=== PATIENT | female | born 2000 | race Caucasian/White ===

== ENCOUNTER 2020-08-04 18:00 | Emergency (ER) | payer OTHER ==
[~2020-08-04] VITALS: Ht 160 cm; Wt 61.4 kg
[2020-08-04 20:42] LABS: BASO % 0.2 % (0.0-1.0); EOS % 0.2 % (0.0-3.0); HEMATOCRIT 40.9 % (36.0-47.0); HEMOGLOBIN 13.4 g/dl (12.0-15.5); LYMPH # 1.9 10^3/uL (1.5-5.0); LYMPH % 15.3 % (24.0-44.0); MEAN CORPUSCULAR HEMOGLOBIN 29.3 pg (27.0-33.0); MEAN CORPUSCULAR HGB CONC 32.8 g/dl (32.0-36.5); MEAN CORPUSCULAR VOLUME 89.5 fl (80.0-96.0); MONO # 0.9 10^3/uL (0.0-0.8); MONO % 7.4 % (0.0-5.0); NEUTROPHILS # 9.6 10^3/uL (1.5-8.5); NEUTROPHILS % 76.6 % (36.0-66.0); PLATELET COUNT, AUTOMATED 267 10^3/uL (150-450); RED BLOOD COUNT 4.57 10^6/uL (4.00-5.40); WHITE BLOOD COUNT 12.5 10^3/uL (4.0-10.0)
[2020-08-04 21:08] LABS: MONO REFLEX EBV COMP NEGATIVE (NEGATIVE)
[2020-08-04] MEDS ORDERED: ISOVUE-370 76% 100ML VIAL As Ordered ONE (21:11)
--- NOTE | 2020-08-04 21:46 | REPVR ---
PROCEDURE INFORMATION: Exam: CT Neck With Contrast Exam date and time: 08/04/2020 9:20 PM Age: 20 years old Clinical indication: Painful swallowing; Additional info: R sided tonsillar swelling R/O abscess TECHNIQUE: Imaging protocol: Computed tomography images of the neck with intravenous contrast. Radiation optimization: All CT scans at this facility use at least one of these dose optimization techniques: automated exposure control; mA and/or kV adjustment per patient size (includes targeted exams where dose is matched to clinical indication); or iterative reconstruction. Contrast material: ISOVUE 370; Contrast volume: 75 ml; Contrast route: INTRAVENOUS (IV); COMPARISON: No relevant prior studies available. FINDINGS: Nasopharynx: Unremarkable. Oropharynx: Both tonsils are enlarged. There is a 5 mm oval low-density area in the inferolateral right tonsil which may be an early peritonsillar abscess or area of phlegmon. No peritonsillar abscess on the left. Hypopharynx: Unremarkable. Larynx: Unremarkable. Normal epiglottis. Retropharyngeal space: Unremarkable. Submandibular/Parotid glands: Normal. Glands are normal in size. Thyroid: Normal. No enlarged or calcified nodules. Lymph nodes: Mildly enlarged upper cervical lymph nodes, measuring up to 15 mm. Trachea: Visualized trachea is unremarkable. Lungs: Unremarkable as visualized. Bones/joints: Unremarkable. No acute fracture. Soft tissues: Unremarkable. No significant soft tissue swelling. IMPRESSION: 1. Mildly enlarged tonsils suggesting early tonsillitis. Possible small early right peritonsillar abscess versus area of phlegmon. 2. Mild reactive cervical adenopathy. Electronically signed by: Elías Dacosta On 08/04/2020 21:46:38 PM
[2020-08-04] MEDS ORDERED: AUGM875T28 PO (21:58)
[2020-08-04] MEDS ORDERED: AUGMENTIN 875 MG TAB PO ONE (22:00)
[2020-08-04 22:11] VITALS: BP 140/95
[2020-08-06 18:07] LABS: EBV AB TO NUCLEAR ANTIGEN >600.0 U/mL (0.0-17.9); EBV VIRAL CAPSID AG IgM <36.0 U/mL (0.0-35.9)
--- NOTE | 2020-08-07 11:59 | ED PDOC ---
Post-Departure Follow-Up certified letter sent to pt re formal read of ct neck. Needs fu. see report. ref er to ENT. Alin Moeller MD Aug 07, 2020 11:59
== END 2020-08-04 22:18 | disposition home or self-care (01) ==
LOC: M ED 18:00
DX: J03.90 Acute tonsillitis, unspecified (principal)
CPT/HCPCS: 36415; 70491; 80047; 85025; 86308; 86664; 86665; 87880; 99284; Q9967

== ENCOUNTER 2021-03-15 21:49 | Emergency (ER) | payer OTHER ==
[~2021-03-15] VITALS: Ht 162.6 cm; Wt 62.7 kg
[~2021-03-15 21:49] MED LIST: AUGM875T28 PO
[2021-03-16] MEDS ORDERED: IBUPROFEN 600MG TAB PO ONE (00:25)
[2021-03-16] MEDS ORDERED: CYCL-707 PO (00:38)
[2021-03-16 00:55] VITALS: BP 127/83
== END 2021-03-16 01:03 | disposition home or self-care (01) ==
LOC: M ED 21:49
DX: M54.5 Low back pain (principal)

== ENCOUNTER 2021-10-17 12:18 | Outpatient (CLI) | payer OTHER ==
[~2021-10-17] VITALS: Ht 162.6 cm; Wt 69.5 kg
[~2021-10-17 12:18] MED LIST changes: +CYCL-707 PO
[2021-10-17 12:42] VITALS: BP 95/59
[2021-10-17 13:16] VITALS: BP 103/67
[2021-10-17] MEDS ORDERED: PRENTAB9 PO (13:19)
[2021-10-17] MEDS ORDERED: HOME MED LIST COMPLETE! XX SCH (13:20)
--- NOTE | 2021-10-17 13:45 | IPNPDOC ---
Text Note Date of Service The patient was seen on 10/17/21. NOTE 21 yo at 28+4 weeks gestation presented to L&D with the complaint of not feeling any movement since Sunday. She reports she usually feels at least some movement but has not since Sunday. She also reports a runny nose, intermittent headache, and a sore throat. She recently returned from [place] after traveling for the holidays. Otherwise she denies any pelvic pain, fev ers/chills, SOB, chest pain, vaginal bleeding, discharge, or leakage of fluid. Vitals - VSS, afebrile, normotensive, non tachycardic General - AAOX3, sitting up in bed, NAD Abdomen - Gravid uterus appropriate size for gestational age. No fundal tenderess FHR tracing - Appropriate for gestational age with moderate variability and 10X10 accels. Single questionable variable decel, but not deep. Overall very reassuring after >1 hour of monitoring. bedside TAUS ( anatomy not assessed): Viable SIUP in cephalic presentation. +gross movement. FELICITY 17.5 cm. Labs: Respiratory panel - Positive for SARS-CoV-2 Patient felt movement while in triage and was reassured. Reassuring status on NST and bedside TAUS. Patient not acutely ill with normal vital signs and is afebrile. We discussed her COVID-19 diagnosis. I offered monoclonal antibody infusion due to her making her at risk for progression to severe COVID-19 disease but she declined, citing her mild symptoms and lack of [facility] safety data in . 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 I gave her a dorian stating her diagnosis. Follow up in the office in 10 days when her quarantine is over. Return to care sooner for worsening symptoms or any urgent concerns. All questions answered. 60 minutes Tali Henderson, I+O Tali MICHEL, I+O Vital Signs Date Time Temp Pulse Resp B/P (MAP) Pulse Ox O2 Delivery O2 Flow Rate FiO2 10/17/21 13:16 84 16 103/67 (79) 10/17/21 12:42 98.3 98 Room Air BLANCA NAVA DO Oct 17, 2021 13:45
== END 2021-10-17 15:35 | disposition home or self-care (01) ==
LOC: M LDO 12:18
PROVIDERS: ATTEND Obstetrics & Gynecology
DX: O36.8130 Decreased fetal movements, third trimester, not applicable or unspecified (principal); O99.513 Diseases of the respiratory system complicating pregnancy, third trimester; U07.1 COVID-19; Z3A.28 28 weeks gestation of pregnancy
CPT/HCPCS: 59025; 87798; G0378; G0463

== ENCOUNTER 2021-12-01 14:58 | Outpatient (CLI) | payer OTHER ==
[~2021-12-01] VITALS: Ht 160 cm; Wt 69.6 kg
[~2021-12-01 14:58] MED LIST changes: +PRENTAB9 PO
[2021-12-01] MEDS ORDERED: HOME MED LIST COMPLETE! XX SCH (15:25)
[2021-12-01 15:26] VITALS: BP 102/61
[2021-12-01] MEDS ORDERED: LACTATED RINGER'S 1000 ML IV STA (16:03)
[2021-12-01 16:42] LABS: HEMATOCRIT 32.8 % (36.0-47.0); HEMOGLOBIN 11.1 g/dl (12.0-15.5); MEAN CORPUSCULAR HEMOGLOBIN 31.9 pg (27.0-33.0); MEAN CORPUSCULAR HGB CONC 33.8 g/dl (32.0-36.5); MEAN CORPUSCULAR VOLUME 94.3 fl (80.0-96.0); PLATELET COUNT, AUTOMATED 216 10^3/uL (150-450); RED BLOOD COUNT 3.48 10^6/uL (4.00-5.40); WHITE BLOOD COUNT 9.2 10^3/uL (4.0-10.0)
[2021-12-01 16:59] VITALS: BP 99/61
[2021-12-01 17:41] VITALS: BP 101/62
== END 2021-12-01 19:05 | disposition home or self-care (01) ==
LOC: M LDO 14:58
PROVIDERS: ATTEND Advanced Practice Midwife
DX: O9A.213 Injury, poisoning and certain other consequences of external causes complicating pregnancy, third trimester (principal); Z3A.35 35 weeks gestation of pregnancy; S20.229A Contusion of unspecified back wall of thorax, initial encounter; X58.XXXA Exposure to other specified factors, initial encounter; Y92.9 Unspecified place or not applicable
CPT/HCPCS: 59025; 76815; 85027; 85460; G0378; G0463

== ENCOUNTER 2022-01-02 18:39 | Inpatient (IN) | payer OTHER ==
[~2022-01-02] VITALS: Ht 162.6 cm; Wt 70.4 kg
[2022-01-02] MEDS ORDERED: HOME MED LIST COMPLETE! XX SCH (18:45)
[2022-01-02 18:58] VITALS: BP 114/70
[2022-01-02 19:52] LABS: HEMATOCRIT 31.7 % (36.0-47.0); HEMOGLOBIN 10.9 g/dl (12.0-15.5); MEAN CORPUSCULAR HEMOGLOBIN 31.7 pg (27.0-33.0); MEAN CORPUSCULAR HGB CONC 34.4 g/dl (32.0-36.5); MEAN CORPUSCULAR VOLUME 92.2 fl (80.0-96.0); PLATELET COUNT, AUTOMATED 192 10^3/uL (150-450); RED BLOOD COUNT 3.44 10^6/uL (4.00-5.40); WHITE BLOOD COUNT 8.3 10^3/uL (4.0-10.0)
[2022-01-02 20:20] VITALS: BP 110/57
[2022-01-02] MEDS ORDERED: OXYTOCIN DRIP 30 UNITS in IV 1 EA IV PRN ×4 (20:30)
[2022-01-02] MEDS ORDERED: miSOPROStol 25MCG 1/4 TABLET PO ONE (20:30)
[2022-01-02] MEDS: LR 1,000 ML IV SCH (20:50)
[2022-01-02 21:17] VITALS: BP 109/56
[2022-01-02 22:28] VITALS: BP 106/67
[2022-01-02 23:22] VITALS: BP 112/55
[2022-01-03] VITALS (24 sets, daily range): BP systolic 101–127; BP diastolic 60–88
[2022-01-03] MEDS: LR 1,000 ML IV SCH ×3 (00:22→07:17)
[2022-01-03] MEDS ORDERED: OXYTOCIN DRIP 30 UNITS in IV 1 EA IV SCH ×2 (01:35→10:30)
[2022-01-03] MEDS ORDERED: OXYTOCIN INJ 10 UNITS/ML VIAL (J2590) As Ordered ONE (09:20)
[2022-01-03 10:18] LABS: CORD GAS ABE A -4.1; CORD GAS HCO3 A 20.3 MEQ/L; CORD GAS O2 SAT A 64.1 %; CORD GAS PCO2 A 35.7 mmHg; CORD GAS PH A 7.373 UNITS; CORD GAS PO2 A 28.1 mmHg; CORD GAS SBC A 20.3 MEQ/L; CORD GAS TCO2 A 21.4 MEQ/L
[2022-01-03 10:21] LABS: CORD GAS ABE V -2.9; CORD GAS HCO3 V 21.8 MEQ/L; CORD GAS O2 SAT V 64.8 %; CORD GAS PH V 7.377 UNITS; CORD GAS PO2 V 27.1 mmHg; CORD GAS SBC V 21.3 MEQ/L
[2022-01-03] MEDS ORDERED: ANUSOL HC CREAM 30GM TOP PRN (10:30)
[2022-01-03] MEDS ORDERED: DIBUCAINE 1% OINTMENT 30GM TOP PRN (10:30)
[2022-01-03] MEDS ORDERED: OXYTOCIN INJ 10 UNITS/ML VIAL (J2590) IV ONE (10:30)
[2022-01-03] MEDS ORDERED: OXYTOCIN DRIP 30 UNITS in IV 1 EA IV ONE (10:30)
[2022-01-03] MEDS ORDERED: IBUPROFEN 600MG TAB PO PRN (10:30)
[2022-01-03] MEDS ORDERED: METHYLERGONOVINE MALEATE 0.2 MG/ML VIAL (J2210) IM PRN (10:30)
[2022-01-03] MEDS ORDERED: RHOGAM 300 MCG (1500 IU) INJ (J2790) IM SCH (10:30)
[2022-01-03] MEDS ORDERED: ACETAMINOPHEN 500 MG TAB PO PRN (10:30)
[2022-01-03] MEDS ORDERED: METHYLERGONOVINE MALEATE 0.2 MG TAB PO PRN (10:30)
[2022-01-03] MEDS ORDERED: LR 1,000 ML IV SCH (10:30)
[2022-01-03] MEDS ORDERED: MEASLES,MUMPS,RUBELLA VACCINE INJ (MMR-II) (90707) SC SCH (10:30)
[2022-01-03] MEDS ORDERED: MOM 30ML SUSPENSION UDC PO PRN (10:30)
[2022-01-03] MEDS ORDERED: ACETAMINOPHEN TAB 650MG DOSE (2X325MG) PO PRN (10:30)
[2022-01-03] MEDS ORDERED: DOCUSATE SODIUM 100MG CAPSULE PO PRN (10:30)
[2022-01-03] MEDS: PRENATAL VITAMINS CHEWABLE TABLET PO SCH (15:18)
[2022-01-04 06:00] VITALS: BP 121/67
[2022-01-04] MEDS: PRENATAL VITAMINS CHEWABLE TABLET PO SCH (09:01)
[2022-01-04 17:52] VITALS: BP 110/70
[2022-01-05] MEDS ORDERED: IBUP-1022 PO (05:37)
[2022-01-05] MEDS ORDERED: ACET1TAB55 PO (05:37)
[2022-01-05] MEDS ORDERED: COLA100C5 PO (05:37)
[2022-01-05 06:00] VITALS: BP 105/64
[2022-01-05] MEDS: PRENATAL VITAMINS CHEWABLE TABLET PO SCH (08:58)
== END 2022-01-05 12:09 | disposition home or self-care (01) | DRG 807 ==
LOC: M LDI 18:39 → M OBS 01-03 12:00
PROVIDERS: ADMIT Obstetrics & Gynecology; ATTEND Obstetrics & Gynecology
PROC: 3E0P7GC Introduction of Other Therapeutic Substance into Female Reproductive, Via Natural or Artificial Opening (ICD-10-PCS; 2022-01-02)
PROC: 10E0XZZ Delivery of Products of Conception, External Approach (ICD-10-PCS; principal; 2022-01-03)
DX: O36.5930 Maternal care for other known or suspected poor fetal growth, third trimester, not applicable or unspecified (principal); Z37.0 Single live birth; Z3A.39 39 weeks gestation of pregnancy; Z86.16 Personal history of COVID-19

== ENCOUNTER 2022-09-06 13:37 | Emergency (ER) | payer OTHER ==
[~2022-09-06] VITALS: Ht 162.6 cm; Wt 61.4 kg
[~2022-09-06 13:37] MED LIST changes: +ACET1TAB55 PO; +COLA100C5 PO; +IBUP-1022 PO
[2022-09-06 17:28] VITALS: BP 133/76
== END 2022-09-06 17:56 | disposition home or self-care (01) ==
LOC: M ED 13:37
DX: S83.91XA Sprain of unspecified site of right knee, initial encounter (principal); X50.1XXA Overexertion from prolonged static or awkward postures, initial encounter; Y93.H1 Activity, digging, shoveling and raking

== ENCOUNTER → 2022-10-02 | Outpatient (CLI) | payer OTHER ==
[~2022-10-02] MED LIST changes: +PROHANCE 279.3MG/ML 15ML VIAL ONE
== END ==
LOC: M PLAIMG 09:20
DX: S83.511A Sprain of anterior cruciate ligament of right knee, initial encounter (principal); M94.261 Chondromalacia, right knee